=== PATIENT | female | born 1955 | race American Indian/Alaskan Native ===

== ENCOUNTER → 2017-04-02 | Outpatient (CLI) | payer OTHER ==
[~2017-04-02] MED LIST: CIPR500T4 PO; HYDR-3498 PO; LOPE2CAP PO; TRAM-40 PO
--- NOTE | 2017-04-03 07:03 | HKNOTE ---
DATE OF SERVICE: 04/02/2017 CHIEF COMPLAINT: Bilateral shoulder pain. HISTORY OF PRESENT ILLNESS: This is a 61-year-old right hand dominant female who is complaining of pain in both shoulders. She had a fracture of her humerus in 2009 with subsequent intramedullary na iling performed at [facility]. She is complaining of increasing right shoulder pain with difficulty moving her arm. She denies any numbness or weakness. She denies any history of trauma. She denies any recent fevers, chills, nausea or vomiting. In regards to her left shoulder, she has had 2 previous reverse shoulder arthroplasties. She had a previous left reverse total shoulder arthroplasty by Dr. Wesley Barclay at [facility], with a subsequent r evision left reverse total shoulder arthroplasty by Dr. Arya Claire in 2014. She is complaining of severe pain with difficulty moving her arm. She states that the pain is constant. She is unable to perform her activities of daily living. There are no alleviating factors. She takes Dilaudid p ills for pain control. She denies any recent infections. She has no other complaints. PHYSICAL EXAMINATION: GENERAL: The patient is in no acute distress. RIGHT SHOULDER: Previous healed incision, 100 degrees of forward flexion, 110 degrees of abduction, 15 degrees of extension, 70 degrees external rotation, 70 degrees internal rotation; 5/5 axillary, radial, median, ulnar and musculocutaneous nerves. LEFT SHOULDER: Healed incision, 30 degrees forward flexion, 40 degrees of abduction, 5 degrees exte nsion, 30 degrees internal rotation, 30 degrees external rotation; 5/5 axillary, radial, ulnar, medi an and musculocutaneous nerve. DIAGNOSTIC DATA: 1. X-rays right shoulder: Two views of the right shoulder demonstrate a previous intramedullary ro d. There are proximal screws that appeared to be within the shoulder joints based on the images pro vided. No fractures or dislocations are seen. 2. X-rays left shoulder: Two views of the left shoulder demonstrate a previous left reverse total shoulder implant. The humeral stem appears to have been cemented. No obvious signs of loosening ar e seen. ASSESSMENT: A 61-year-old female with bilateral shoulder pain. PLAN: I discussed treatment options with Ms. Monzon. I explained to her that for the right shoulder, she requires removal of her previous hardware given that the screws are now within the joint. In r egards to her left shoulder, she has had 2 previous surgeries and requires a third surgery. I expla ined to her that she would be better suited seeing an orthopedic shoulder surgeon. My recommendatio n is for her to see Dr. Shlomo Casas at [facility]. We will request her insu rahel to refer her to an orthopedic shoulder surgeon, and she was given a prescription for tramadol 50 mg every 8 hours as needed, 20 tablets with no refill. She will follow up with me as needed. Dictated By: SHEY MURILLO/SAMANTA Conf#: [id number] DID#: [id number]
== END | disposition home or self-care (01) ==
LOC: HKI 10:44
PROVIDERS: ATTEND Orthopaedic Surgery Adult Reconstructive Orthopaedic Surgery
DX: M25.512 Pain in left shoulder (principal); M25.511 Pain in right shoulder; Z96.612 Presence of left artificial shoulder joint
CPT/HCPCS: G0463

== ENCOUNTER → 2017-12-04 | Outpatient (CLI) | END | disposition home or self-care (01) ==

== ENCOUNTER 2018-05-28 07:44 | Inpatient (IN) | END 2018-05-29 12:01 | disposition home or self-care (01) | DRG 483 ==